=== PATIENT | male | born 1970 | race Caucasian/White ===

== ENCOUNTER 2020-02-12 10:48 | Inpatient (IN) | payer MEDICAID, OTHER, SELFPAY ==
[~2020-02-12] VITALS: Ht 177.8 cm; Wt 113.4 kg
[2020-02-12 11:33] LABS: BASOPHILS % 0.4 % (0.0-2.0); HEMATOCRIT. 46.1 % (42.0-52.0); HEMOGLOBIN. 15.8 g/dL (14.0-18.0); LYMPHOCYTES % 12.4 % (20.0-50.0); MEAN CORPUSCULAR HEMOGLOBIN 28.4 pg (28.0-32.0); MEAN CORPUSCULAR VOLUME 82.6 fL (80.0-94.0); MEAN PLATELET VOLUME 9.2 fl (7.4-10.4); MONOCYTES % 9.3 % (2.0-8.0); NEUTROPHILS % 77.9 % (40.0-76.0); PLATELET 181 x1000/uL (130-400); RED BLOOD CELL COUNT 5.57 mill/uL (4.7-6.1); RED CELL DISTRIBUTION WIDTH 14.1 % (11.6-14.6)
[2020-02-12 11:39] LABS: PROTHROMBIN TIME 10.8 sec (9.6-11.0)
[2020-02-12 11:40] LABS: CHLORIDE 106 mEq/L (98-107)
[2020-02-12 19:09] LABS: BG CARBOXYHEMOGLOBIN 0.3 % (0.5-1.5); BG DEOXYHEMOGLOBIN 4.8 % (0.0-5.0); BG FRACTION INSPIRED OXYGEN 21; BG HCO3 ACT 13.9 mmol/L (22.0-26.0); BG METHEMOGLOBIN 0.3 % (0.0-1.5); BG OXYGEN SATURATION 95.2 % (92.0-98.5); BG OXYHEMOGLOBIN 94.6 % (94.0-97.0); BG PCO2 25.7 mmHg (35.0-45.0); BG PH 7.351 (7.350-7.450); BG PO2 80.4 mmHg (75.0-100.0); BG SAMPLE SITE RIGHT RADIAL; BG TOTAL HEMOGLOBIN 12.5 g/dL (12.0-18.0); BG VENT MODE ROOM AIR
[2020-02-12 22:42] VITALS: BP 150/86
[2020-02-12] MEDS ORDERED: AZITHROMYCIN 500 MG in DEXT 5% WATER 250 ML IV SCH (23:15)
[2020-02-12] MEDS ORDERED: ONDANSETRON HCL 4MG/2ML INJ IV PRN (23:15)
[2020-02-12] MEDS ORDERED: IPRATROPIUM/ALBUTEROL 0.5-3(2.5)MG/3ML NEB HHN PRN (23:15)
[2020-02-12] MEDS ORDERED: DIPHENHYDRAMINE 50MG/ML VIAL IV PRN (23:15)
[2020-02-12] MEDS ORDERED: MORPHINE SULFATE 2 MG/ML CPJ (NOT FOR IM USE) IV PRN (23:15)
[2020-02-12] MEDS ORDERED: MAGNESIUM/ALUMINUM HYDROXIDE/SIMETHICONE 30ML UDC PO PRN (23:15)
[2020-02-12] MEDS ORDERED: ACETAMINOPHEN 325MG TABLET PO PRN (23:15)
[2020-02-12] MEDS ORDERED: DOCUSATE SODIUM 100MG CAPSULE PO PRN (23:15)
[2020-02-12] MEDS ORDERED: LORAZEPAM 2MG/ML CPJ IV PRN (23:15)
[2020-02-12] MEDS ORDERED: CLONIDINE 0.1MG TABLET PO PRN (23:15)
[2020-02-12] MEDS ORDERED: HYDRALAZINE 20MG/ML VIAL IV PRN (23:15)
[2020-02-13] VITALS: BP 144/83
[2020-02-13] MEDS ORDERED: AZITHROMYCIN 500 MG in DEXT 5% WATER 250 ML IV SCH ×2
[2020-02-13] MEDS ORDERED: CEFTRIAXONE 1 G PREMIX 50 ML IV SCH (01:00)
[2020-02-13] MEDS: HYDROCODONE/ACETAMINOPHEN 10/325MG TABLET PO PRN ×2 (01:33→20:56)
[2020-02-13 04:00] VITALS: BP 134/82
[2020-02-13 04:59] LABS: HEMATOCRIT. 44.5 % (42.0-52.0); HEMOGLOBIN. 15.3 g/dL (14.0-18.0); MEAN CORPUSCULAR HEMOGLOBIN 28.5 pg (28.0-32.0); MEAN CORPUSCULAR VOLUME 82.8 fL (80.0-94.0); MEAN PLATELET VOLUME 8.8 fl (7.4-10.4); MONOCYTES % 8.1 % (2.0-8.0); NEUTROPHILS % 78.9 % (40.0-76.0); PLATELET 185 x1000/uL (130-400); RED BLOOD CELL COUNT 5.38 mill/uL (4.7-6.1); RED CELL DISTRIBUTION WIDTH 13.9 % (11.6-14.6)
[2020-02-13 05:03] LABS: CHLORIDE 103 mEq/L (98-107)
[2020-02-13 08:00] VITALS: BP 142/88
[2020-02-13] MEDS: ENOXAPARIN 30MG/0.3ML SYR SUBCUT SCH ×2 (08:25→20:54)
[2020-02-13 12:00] VITALS: BP 148/92
[2020-02-13] MEDS ORDERED: PNEUMOCOCCAL 23-VAL P-SAC VAC 0.5 ML IM ONE (12:00)
[2020-02-13] MEDS ORDERED: SODIUM CHLORIDE 0.45% 1,000 ML IV SCH (12:45)
[2020-02-13] MEDS: CEFTRIAXONE 1 G PREMIX 50 ML IV SCH (19:29)
[2020-02-13 20:00] VITALS: BP 137/83
[2020-02-13 20:06] LABS: CLARITY URINE CLEAR (CLEAR); COLOR URINE DARK YELLOW (YELLOW); KETONES URINE TRACE (NEGATIVE); LEUKOCYTE ESTERASE URINE TRACE (NEGATIVE); NITRITE URINE NEGATIVE (NEGATIVE); OCCULT BLOOD URINE NEGATIVE (NEGATIVE); PH URINE 7.5 (4.5-8.0); PROTEIN URINE 2+ (NEGATIVE); SPECIFIC GRAVITY URINE 1.029 (1.005-1.030)
[2020-02-13] MEDS: AZITHROMYCIN 250 MG in DEXT 5% WATER 250 ML IV SCH (20:54)
[2020-02-14] VITALS: BP 141/87
[2020-02-14] MEDS: ALBUTEROL 6.7GM HFA INHALER INH PRN (00:22)
[2020-02-14 04:00] VITALS: BP 141/82
[2020-02-14] MEDS: ALBUTEROL 6.7GM HFA INHALER ORI SCH ×4 (05:05→15:51)
[2020-02-14 06:57] LABS: CHLORIDE 101 mEq/L (98-107)
[2020-02-14 07:15] LABS: CREATINE KINASE MB FRACTION < 1.0 ng/mL (0.5-3.6)
[2020-02-14 08:00] VITALS: BP 148/86
[2020-02-14] MEDS: METHYLPREDNISOLONE SOD SUCC 40 MG/ML VIAL IV SCH ×2 (08:00→15:51)
[2020-02-14] MEDS: ENOXAPARIN 30MG/0.3ML SYR SUBCUT SCH ×2 (08:00→20:50)
[2020-02-14 11:42] LABS: C REACTIVE PROTEIN QUANT > 480.0 mg/L (0.0-3.0)
[2020-02-14 12:42] VITALS: BP 168/99
[2020-02-14 16:00] VITALS: BP 142/82
[2020-02-14 20:00] VITALS: BP 140/80
[2020-02-14] MEDS: CEFTRIAXONE 1 G PREMIX 50 ML IV SCH (20:50)
[2020-02-14] MEDS: AZITHROMYCIN 250 MG in DEXT 5% WATER 250 ML IV SCH (20:51)
[2020-02-14] MEDS: HYDROCODONE/ACETAMINOPHEN 10/325MG TABLET PO PRN (21:58)
[2020-02-15] MEDS: ALBUTEROL 6.7GM HFA INHALER ORI SCH ×4 (06:00→17:48)
[2020-02-15 08:00] VITALS: BP 127/86
[2020-02-15] MEDS: METHYLPREDNISOLONE SOD SUCC 40 MG/ML VIAL IV SCH ×2 (08:49→17:48)
[2020-02-15] MEDS: GUAIFENESIN 200MG/10ML SUGAR FREE UDC PO PRN (08:49)
[2020-02-15] MEDS: ENOXAPARIN 30MG/0.3ML SYR SUBCUT SCH ×2 (08:49→20:40)
[2020-02-15 12:00] VITALS: BP 131/81
[2020-02-15] MEDS: ALBUTEROL 6.7GM HFA INHALER INH PRN ×2 (13:29→13:30)
[2020-02-15 16:00] VITALS: BP 125/85
[2020-02-15 20:00] VITALS: BP 120/80
[2020-02-15] MEDS: CEFTRIAXONE 1 G PREMIX 50 ML IV SCH (20:40)
[2020-02-15] MEDS: AZITHROMYCIN 250 MG TABLET PO SCH (20:40)
[2020-02-15] MEDS: HYDROCODONE/ACETAMINOPHEN 10/325MG TABLET PO PRN (21:38)
[2020-02-16] VITALS: BP 125/75
[2020-02-16] MEDS: ALBUTEROL 6.7GM HFA INHALER ORI SCH ×4 (00:22→18:41)
[2020-02-16 04:00] VITALS: BP 127/82
[2020-02-16 08:00] VITALS: BP 133/70
[2020-02-16] MEDS: ENOXAPARIN 30MG/0.3ML SYR SUBCUT SCH ×2 (08:24→21:13)
[2020-02-16] MEDS: METHYLPREDNISOLONE SOD SUCC 40 MG/ML VIAL IV SCH ×2 (08:24→18:40)
[2020-02-16 12:00] VITALS: BP 138/77
[2020-02-16 16:00] VITALS: BP 126/78
[2020-02-16 20:00] VITALS: BP 133/81
[2020-02-16] MEDS: AZITHROMYCIN 250 MG TABLET PO SCH (21:13)
[2020-02-16] MEDS: CEFTRIAXONE 1 G PREMIX 50 ML IV SCH (21:13)
[2020-02-16] MEDS: HYDROCODONE/ACETAMINOPHEN 10/325MG TABLET PO PRN (22:00)
[2020-02-17] VITALS (9 sets, daily range): BP systolic 107–150; BP diastolic 72–88
[2020-02-17] MEDS: ALBUTEROL 6.7GM HFA INHALER ORI SCH ×4 (06:00→18:00)
[2020-02-17] MEDS: METHYLPREDNISOLONE SOD SUCC 40 MG/ML VIAL IV SCH (08:44)
[2020-02-17] MEDS: ENOXAPARIN 30MG/0.3ML SYR SUBCUT SCH ×2 (08:44→21:03)
[2020-02-17] MEDS: GUAIFENESIN 200MG/10ML SUGAR FREE UDC PO PRN (08:45)
[2020-02-17 13:39] LABS: BG BASE EXCESS -0.3 mmol/L (-2.0-2.0); BG CARBOXYHEMOGLOBIN 0.2 % (0.5-1.5); BG DEOXYHEMOGLOBIN 4.8 % (0.0-5.0); BG FRACTION INSPIRED OXYGEN 32; BG HCO3 ACT 22.9 mmol/L (22.0-26.0); BG METHEMOGLOBIN 0.3 % (0.0-1.5); BG OXYGEN SATURATION 95.2 % (92.0-98.5); BG OXYHEMOGLOBIN 94.7 % (94.0-97.0); BG PH 7.447 (7.350-7.450); BG PO2 75.1 mmHg (75.0-100.0); BG SAMPLE SITE RIGHT RADIAL; BG TOTAL HEMOGLOBIN 16.5 g/dL (12.0-18.0); BG VENT MODE NASAL CANNULA
[2020-02-17] MEDS: CEFTRIAXONE 1 G PREMIX 50 ML IV SCH (21:04)
[2020-02-17] MEDS: HYDROCODONE/ACETAMINOPHEN 10/325MG TABLET PO PRN (21:41)
[2020-02-18] MEDS: ALBUTEROL 6.7GM HFA INHALER ORI SCH ×5 (00:57→23:24)
[2020-02-18 04:00] VITALS: BP 138/87
[2020-02-18 08:00] VITALS: BP 108/65
[2020-02-18] MEDS: ENOXAPARIN 30MG/0.3ML SYR SUBCUT SCH ×2 (08:17→19:38)
[2020-02-18] MEDS: PREDNISONE 20MG TABLET PO SCH (08:17)
[2020-02-18 12:00] VITALS: BP 144/78
[2020-02-18 16:00] VITALS: BP 142/75
[2020-02-18] MEDS: CEFTRIAXONE 1 G PREMIX 50 ML IV SCH (19:38)
[2020-02-18 19:53] VITALS: BP 122/77
[2020-02-18] MEDS: ZOLPIDEM TARTRATE 5MG TABLET PO PRN (22:09)
[2020-02-18 23:39] VITALS: BP 127/69
[2020-02-19 04:00] VITALS: BP 131/75
[2020-02-19] MEDS: ALBUTEROL 6.7GM HFA INHALER ORI SCH ×3 (05:06→17:56)
[2020-02-19 08:00] VITALS: BP 137/82
[2020-02-19] MEDS: PREDNISONE 20MG TABLET PO SCH (08:36)
[2020-02-19] MEDS: ENOXAPARIN 30MG/0.3ML SYR SUBCUT SCH ×2 (08:36→21:16)
[2020-02-19 12:00] VITALS: BP 124/73
[2020-02-19 16:00] VITALS: BP 127/74
[2020-02-19 20:00] VITALS: BP 121/81
[2020-02-19] MEDS ORDERED: HYDROCODONE/ACETAMINOPHEN 5/325MG TABLET PO PRN (21:15)
[2020-02-19] MEDS: ZOLPIDEM TARTRATE 5MG TABLET PO PRN (22:30)
[2020-02-20] VITALS: BP 126/78
[2020-02-20] MEDS: ALBUTEROL 6.7GM HFA INHALER ORI SCH ×3 (00:31→11:42)
[2020-02-20 04:00] VITALS: BP 128/80
[2020-02-20 08:00] VITALS: BP 129/79
[2020-02-20] MEDS: PREDNISONE 20MG TABLET PO SCH (08:18)
[2020-02-20] MEDS: ENOXAPARIN 30MG/0.3ML SYR SUBCUT SCH (08:18)
[2020-02-20 12:00] VITALS: BP 135/81
[2020-02-20 12:54] VITALS: BP 123/80
[2020-02-20 16:00] VITALS: BP 127/75
== END 2020-02-20 17:40 | disposition home or self-care (01) | DRG 720 ==
LOC: ER 10:55 → ENRESERV 21:08 → 7WST 21:54
PROVIDERS: ADMIT Internal Medicine; ATTEND Internal Medicine
DX: A41.89 Other specified sepsis (principal); U07.1 COVID-19; J96.01 Acute respiratory failure with hypoxia; I11.0 Hypertensive heart disease with heart failure; I50.30 Unspecified diastolic (congestive) heart failure; J12.89 Other viral pneumonia; R74.0 Nonspecific elevation of levels of transaminase and lactic acid dehydrogenase [LDH]
CPT/HCPCS: 36415; 36600; 71045; 80053; 81003; 82375; 82553; 82728; 82805; 82962; 83615; 83880; 84484; 85025; 85379; 86140; 87804; 90732; 93005; 99285; J0360; J0456; J0696; J1650; J2920; J7060; J7512; U0003-CS